=== PATIENT | female | born 1995 | race Caucasian/White ===

== ENCOUNTER 2018-05-07 02:58 | Emergency (ER) | payer OTHER ==
[~2018-05-07] VITALS: Ht 157.5 cm; Wt 52.2 kg
[~2018-05-07 02:58] MED LIST: ABAT250V; Amoxicillin500 MG PO; BENZ100A PO; Flonase 0.05% N16 GM; IBUP600 PO; PSEU120ER PO; RXSULTRIDS PO; SULTRIDS PO; Verotin-Gr Cap1 EACH
[2018-05-07] MEDS ORDERED: Cleocin HCl150 MG PO (03:21)
== END 2018-05-07 03:45 | disposition home or self-care (01) ==
LOC: ER 02:58
DX: L03.116 Cellulitis of left lower limb (principal); L03.115 Cellulitis of right lower limb; Z79.899 Other long term (current) drug therapy; F17.200 Nicotine dependence, unspecified, uncomplicated
CPT/HCPCS: 99282